=== PATIENT | female | born 1980 | race Caucasian/White ===

== ENCOUNTER → 2016-09-20 | Outpatient (CLI) | payer OTHER ==
[~2016-09-20] MED LIST: BUSP-8 PO; CHOL100010 PO; GABA-113 PO; METH500T37 PO; NAPR-1169 PO; ONDA8TAB62 SL; PRLSR20 PO; TOPI100T34 PO; VITAMIN B2 PO; ZOLP5TAB PO
[2016-09-23 13:45] LABS: MICROSOMAL AB 1 IU/ML (<9); THYROGLOBULIN 9.8 NG/ML (2.8-40.9)
== END | disposition home or self-care (01) ==
LOC: C.LABBC 13:38
PROVIDERS: ATTEND Family Medicine
DX: A69.20 Lyme disease, unspecified (principal); A68.1 Tick-borne relapsing fever; R63.4 Abnormal weight loss

== ENCOUNTER 2021-01-24 05:43 | Observation (INO) ==
--- NOTE | 2020-12-16 14:01 | PAT Medication Instructions ---
Medication Instructions Date of Service December 16, 2020 Home Medications Medication Instructions Recorded gabapentin 100 mg capsule 100 mg PO DAILY PRN #30 cap 07/14/20 gabapentin 600 mg tablet 600 mg PO HS #30 tab 07/14/20 gabapentin 100 mg capsule 100 mg PO DAILY PRN gabapentin 600 mg tablet 600 mg PO HS glutathione 50 mg capsule 50 mg PO QAM montelukast 10 mg tablet 10 mg PO DAILY cholecalciferol (vitamin D3) 125 mcg (5,000 unit) capsule 5,000 unit PO DAILY STOP taking 2 weeks before surgery If surgery is within 2 weeks, stop taking as soon as possible. glutathione 50 mg capsule 50 mg PO QAM DO NOT take the morning of surgery montelukast 10 mg tablet 10 mg PO DAILY cholecalciferol (vitamin D3) 125 mcg (5,000 unit) capsule 5,000 unit PO DAILY Take morning of surgery With a small sip of water, OTHERWISE NOTHING TO EAT OR DRINK AFTER MIDNIGHT: gabapentin 100 mg capsule 100 mg PO DAILY PRN (if needed) Take evening before surgery gabapentin 100 mg capsule 100 mg PO DAILY PRN (if needed) gabapentin 600 mg tablet 600 mg PO HS cholecalciferol (vitamin D3) 125 mcg (5,000 unit) capsule 5,000 unit PO DAILY Other Notes If you have any questions please call us at [phone] or [phone] or [phone] or [phone]
--- NOTE | 2020-12-21 13:11 | Anesthesiology Consultation ---
Date of Service December 21, 2020 Assessment & Plan (1) Encounter for pre-operative examination: COVID Status: As of 12/21 assessment, patient denies travel to endemic area, known exposure/sick contacts, or symptoms of COVID19. Patient instructed that they and their household members must follow strict social distancing guidelines, wear a mask in public and avoid travel/events/gatherings for 14 days prior to surgery. Preoperative COVID19 testing to be completed prior to surgery per surgeon's arrangements (01/04 per pt). Patient made aware to self-isolate as much as possible between COVID testing and surgery. Pt is fully vaccinated. Patient to PCP on 10/07/20 with persistent chest pressure/tightness. Also with strong family history of cardiovascular disease. PCP arranging for stress echo. Discussed this with patient at PAT appointment. She reports she did not have medical insurance at that time so stress echo was never completed. However, she now has insurance and should be able to complete stress echo. She is to see her PCP on 12/27/2020. Workload message sent to PCP requesting stress echo be completed prior to surgery. HCG AM DOS Chart Review Chart Review: Acceptable Risk for Surgery (pending response from PCP) and Patient seen in Pre Admission Testing Teaching & Discussion Instructed NPO after midnight before surgery, except medications with 15 cc of water. Medication instructions provided according to the [facility] guidelines. History Surgery Operation Date: 01/10/21 07:30 Proposed Procedures p Robotic Total Laparoscopic Hysterectomy - Maria Fernanda Stoll MD, FACOG Height/Weight Height: 5 ft 4 in Weight: 114 kg Allergies Allergy/AdvReac Type Severity Reaction Status Date / Time dexamethasone Allergy Severe SWELLING Verified 12/21/20 11:45 OF THE THROAT, SHORTNESS OF BREATH Gadolinium-Containing Allergy Verified 12/21/20 11:45 Contrast Medi Medications Home Medications Medication Instructions Recorded Confirmed Last Taken gabapentin 100 mg capsule 100 mg PO DAILY PRN #30 cap 07/14/20 12/21/20 Unknown gabapentin 600 mg tablet 600 mg PO HS #30 tab 07/14/20 12/21/20 Unknown glutathione 50 mg capsule 50 mg PO QAM 09/13/20 12/21/20 Unknown montelukast 10 mg tablet 10 mg PO DAILY 09/13/20 12/21/20 Unknown cholecalciferol (vitamin D3) 125 5,000 unit PO DAILY cap 10/07/20 12/21/20 Unknown mcg (5,000 unit) capsule Past Medical History Medical History (Updated 12/21/20 @ 13:14 by Max Hubbard) Anxiety Babesiosis Dx in 2017, tests were still coming back + in 2019. Cervical disc disease Chronic daily headache Insomnia slowly getting better Iron deficiency anemia Lyme disease 2016 TMJ (temporomandibular joint disorder) click only never locked Vitamin D deficiency Exercise / Class Metabolic Activity II 4-5 Yardwork/Stairs/Walk up hill Pt regularly plays frisbee golf and hikes and has been getting some chest pain and [place] with exertion. To have stress echo per PCP. Past Family History Family History Brother Drug abuse Alcohol abuse Parker's palsy Depression Seizure Myocardial infarction Father Alcohol abuse Mother Cardiac disorder Hypertension Myocardial infarction Uncle Colorectal cancer Prostate cancer Myocardial infarction Aunt Breast cancer Myocardial infarction Grandfather (Maternal) Myocardial infarction Grandmother (Maternal) Myocardial infarction Brother Stroke Alcohol abuse Denies family history of Ovarian cancer Past Surgical History Surgical History (Updated 12/21/20 @ 13:06 by Max Hubbard) H/O colonoscopy H/O wisdom tooth extraction History of esophagogastroduodenoscopy (EGD) Status post surgical removal of pilonidal cyst Past Anesthesia History No Hx of Anesthesia Complications and No Family Hx of Anesthesia Complications History of PONV No Hx of PONV and Hx of Motion Sickness Social History Smoking Status: Never smoker Do You Dip or Chew Tobacco: No Hx Alcohol Use: No Hx Substance Use: No substance use type: does not use Review of Systems Pt denies any recent palpitations, cough, URI, or uncontrolled acid reflux. +occasional fevers (2/2 Babesiosis, chronic, intermittent temp of > 100) Physical Exam Vital Signs BP: 115/83 P: 74bpm SPO2: 99% RA T: 98.5 F R: 16 Constitutional + obese ENMT Mouth: no dental restorations, no chipped teeth and no loose teeth Thyromental Distance: > or= 3.5 Finger Breadths Mallampati Class: II Neck normal visual inspection; neck extension not limited Respiratory normal respiratory effort, lungs clear to auscultation Cardiovascular RRR, no murmur, no edema Testing Laboratory Results 12/21/20 13:21 12/21/20 13:21 Blood Type A Negative 12/21/20 13:21 Antibody Screen NEGATIVE 12/21/20 13:21 Electrocardiogram Date: 10/07/20 Sinus rhythm at 82 bpm. Possible anterior myocardial infarction of indeterminate age. *Done at PCP office, pt to have stress test. Chest X-Ray Date: 10/07/20 Findings: + NAD
[2020-12-21 14:56] LABS: Basophils # (auto) 0.02 K/uL (0-0.2); Basophils % (auto) 0.3 %; Eosinophils % (auto) 1.4 %; Hematocrit (blood only) 42.3 % (37-47); Hemoglobin 14.2 g/dL (12.0-16.0); Immature Granulocytes # (auto) 0.02 K/uL (0.00-0.02); Immature Granulocytes % (auto) 0.3 %; Lymphocytes # (auto) 1.44 K/uL (1.2-3.4); Lymphocytes % (auto) 20.9 %; Mean Corpuscular Hemoglobin 29.5 pg (25-34); Mean Corpuscular Hgb Conc 33.6 g/dL (32-36); Mean Corpuscular Volume 87.8 fL (80-100); Mean Platelet Volume 10.1 fL (7.4-10.4); Monocytes # (auto) 0.32 K/uL (0.11-0.59); Monocytes % (auto) 4.6 %; Neutrophils % (auto) 72.5 %; Platelet Count 285 K/uL (130-400); RDW Coefficient of Variation 14.3 % (11.5-14.5); Red Blood Count 4.82 M/uL (4.2-5.4)
[2020-12-21 16:48] LABS: BUN Creatinine Ratio 14.9 (10-20); Calcium 9.3 mg/dl (8.5-10.1); Creatinine Clr Calc Pharmacy 113.4 ml/min; Est GFR (African American) 105.4; Est GFR (Non-African American) 90.9; Potassium 4.3 mmol/L (3.5-5.1)
[2021-01-24] MEDS ORDERED: LR 15ML/HR IV SCH (06:00)
[2021-01-24] MEDS ORDERED: LACTATED RINGER'S 1,000 ML IV SCH ×2 (06:00→11:15)
[2021-01-24] MEDS ORDERED: PHENAZOPYRIDINE HCL 100 MG TAB PO SCH (06:00)
[2021-01-24] MEDS ORDERED: DEXAMETHASONE SOD INJ 4 MG/ML VIAL ONE (06:51)
[2021-01-24] MEDS ORDERED: GLYCOPYRROLATE 0.2 MG/ML VIAL ONE ×2 (06:51→08:53)
[2021-01-24] MEDS ORDERED: MIDAZOLAM HCL 1 MG/ML 2ML VIAL ONE (06:51)
[2021-01-24] MEDS ORDERED: PROPOFOL IV EMULSION 10 MG/ML 20 ML VIAL IV ONE (06:51)
[2021-01-24] MEDS ORDERED: ONDANSETRON INJ 2 MG/ML 2 ML VIAL ONE ×2 (06:51→08:53)
[2021-01-24] MEDS ORDERED: LIDOCAINE 2% 2 ML VIAL/AMP(20MG/ML) INFIL ONE (06:51)
[2021-01-24] MEDS ORDERED: NEOSTIGMINE METHYLSULFATE 1 MG/ML 10ML VIAL ONE (06:51)
[2021-01-24] MEDS ORDERED: fentaNYL citrate 100 MCG/2 ML VIAL ONE ×3 (06:52→10:33)
[2021-01-24] MEDS ORDERED: SCOPOLAMINE 1 MG TDSY TD ONE (07:04)
[2021-01-24] MEDS ORDERED: LABETALOL HCL IV 5 MG/ML 20ML IV PRN (07:09)
[2021-01-24] MEDS ORDERED: KETOROLAC 30 MG/ML VIAL IV PRN ×2 (07:09→11:13)
[2021-01-24] MEDS ORDERED: PROMETHAZINE HCL 12.5 MG in SODIUM CHLORIDE 0.9% 50 ML IV PRN (07:09)
[2021-01-24] MEDS ORDERED: fentaNYL citrate 100 MCG/2 ML VIAL IV PRN (07:09)
[2021-01-24] MEDS ORDERED: ATROPINE SULFATE 0.1 MG/ML 10ML SYR IV PRN (07:09)
[2021-01-24] MEDS ORDERED: ONDANSETRON INJ 2 MG/ML 2 ML VIAL IV PRN ×2 (07:09→11:13)
[2021-01-24 07:19] LABS: Pregnancy Test, Serum Negative (Negative)
--- NOTE | 2021-01-24 07:24 | History & Physical Report ---
Date of Service January 24, 2021 Assessment & Plan (1) Fibroid uterus: (2) Menorrhagia: (3) Iron deficiency anemia: Admission and Anticipated Discharge Date Admission Date: Discussed with patient previously and again today her options to help her bleeding and symptomatic fibroid uterus. Some options overlap like UAE but otherwise due to pelvic pressure sx, myomectomy or hysterectomy best options to help those sx. She is ready for such. Discussed risks, alternatives and complications and recovery and preop and postop care at length. Discussed lifting restrictions specifically due to her work. We have discussed in past use of lupron to help shrink overall size which may or may not make surgery easier but given hgb normal would not insist she do and after review of side effects, she declines. Also may not help a pedunculated fibroid as well. Endometrial bi opsy done, will await results. She will plan TLH, bilateral salpingectomies and cystoscopy with robotic assistance. Risks, alternatives, complications reviewed with the patient included but not limited to bleeding, infection, anesthesia, injury to surrounding structures to include bowel, bladder, vessels, nerves, ureters, deep venous thrombosis, pulmonary embolism, delayed complications, repeat hospitalizations. The patient desires to proceed and the consent form is signed. She is aware of her preop, postop instructions and course. US done today, ordered by me, reviewed by me with uterine size 14.1 x 7.2 x5.8cm includes left fibroid that is subserosal and fundal. Right fibroid is seemingly pedunculated and 7 x8cm approximately. Ovaries are normal. Findings similar to December 2019 u/s. History of Present Illness Primary Care Provider: Tashia Cheng, DO 40yo G0 with cc of symptomatic fibroid uterus and heavy vaginal flow with history of anemia for treatment planning. Seen recently with the following history. She notes periods are still regular but getting longer. Now they are 7days long but now with 4 heavy days. On heavy days, she doubles up with pad and tampon and has to change at 1.5-2hr and leaking through. Could have accident if not careful. Pain as well, she tried the advil in high doses and did not help with flow or pain. Pain starts about 3d before period and then lasts for entire period. She tried advil as mentioned and naprosyn and does not feel made any difference in her pain. She had chronic HAs and will use exedrin migraine for that and does not help either. Not currently SA. Feeling pressure and heaviness symptoms in pelvis. She has pressure on her spine and hip as well and wondering if also related to enlarged uterus. At her last exam 15 wk size. Has history of anemia and gets iron infusions. Hemoglobin in october was normal but still requiring IV Fe treatment. She has considered her options and desires definitive hysterectomy. She is aware of methods to help bleeding like hormones, nsaids, mirena iud, ablation and hysterectomy and those that can help size of uterus , like UAE, myomectomy and hysterectomy. She opts for latter to help both issues. We have also discussed in past, experimental methods being done in some centers to try to shrink fibroids. She again is here to discuss surgery and we do need to do an embx. Her last u/s was december 2019 as mentioned and so getting repeat today. Would like ovarian preservation. Aware that with size of uterus there is risk to needing open procedure. Endometrial biopsy negative. All Active Problems Encounter for pre-operative examination History of anemia Lyme disease Babesiosis Fibroid uterus Menorrhagia Encounter for annual routine gynecological examination Iron deficiency anemia Anxiety Cervical disc disease Chronic daily headache Migraine, unspecified, not intractable, without status migrainosus Allergies Allergy/AdvReac Type Severity Reaction Status Date / Time dexamethasone Allergy Severe SWELLING Verified 01/24/21 06:11 OF THE THROAT, SHORTNESS OF BREATH Gadolinium-Containing Allergy Verified 01/24/21 06:11 Contrast Medi Home Medications Medication Instructions Recorded Confirmed Type gabapentin 100 mg capsule 100 mg PO DAILY PRN #30 cap 07/14/20 12/27/20 Rx gabapentin 600 mg tablet 600 mg PO HS #30 tab 07/14/20 01/24/21 Rx glutathione 50 mg capsule 50 mg PO QAM 09/13/20 12/27/20 History montelukast 10 mg tablet 10 mg PO DAILY 09/13/20 01/24/21 History cholecalciferol (vitamin D3) 125 5,000 unit PO DAILY cap 10/07/20 01/24/21 History mcg (5,000 unit) capsule doxycycline hyclate 100 mg capsule 100 mg PO BID 4 Days #8 cap 12/27/20 01/24/21 Rx erenumab-aooe 70 mg/mL 70 mg SUBCUT MONTHLY #1 ea 12/27/20 01/24/21 Rx subcutaneous auto-injector Patient History Medical History Anxiety Babesiosis Cervical disc disease Chronic daily headache Insomnia Iron deficiency anemia Lyme disease TMJ (temporomandibular joint disorder) Vitamin D deficiency Surgical History H/O colonoscopy H/O wisdom tooth extraction History of esophagogastroduodenoscopy (EGD) Status post surgical removal of pilonidal cyst Family History Brother Drug abuse Alcohol abuse Parker's palsy Depression Seizure Myocardial infarction Father Alcohol abuse Mother Cardiac disorder Hypertension Myocardial infarction Uncle Colorectal cancer Prostate cancer Myocardial infarction Aunt Breast cancer Myocardial infarction Grandfather (Maternal) Myocardial infarction Grandmother (Maternal) Myocardial infarction Brother Stroke Alcohol abuse Denies family history of Ovarian cancer Social History Smoking Status: Never smoker Second Hand Exposure: No; Do You Dip or Chew Tobacco: No; Tobacco Cessation Education Requested by Patient: No Hx Alcohol Use: No Hx Substance Use: No Preferred Language: Lithuanian Communication Ability: Effective Visual Impairment: No Limitations Hearing Ability: Normal Data Sme Required: No Beliefs That Will Affect Care: None marital status: Current Living Situation: Spouse current occupational status: unemployed current occupation: post office, [employer], [employer] Other Information That Helps Us Care for You: No Feels Safe at Home: Yes Safety Concerns: Feels Safe At This Time caffeine: No during the past year weight has: remained stable Dental Care, Regularly: Yes Physical Activity Frequency: Daily Seatbelt Use: always Sunscreen Use: Yes Assistive Devices: None Review of Systems per hpi Physical Exam Constitutional: WD/WN, vitals as above Respiratory: normal respiratory effort, lungs clear to auscultation Cardiovascular: Rate/Rhythm: regular rate and regular rhythm Gastrointestinal (Abdomen): Percussion/Palpation: abdomen soft; abdomen nontender Musculoskeletal: nt calves Neurologic: grossly normal Psychiatric: A+Ox3, euthymic affect Genitourinary: normal external appearance Speculum/Bimanual Exam: normal appearance of the vagina, normal appearance of the cervix and + uterus enlarged (15 wk size irreg contour to right); no adnexal mass Results & Data ([facility]) Vital Signs (Past 12 Hours) Vital Signs Temp Pulse Resp BP Pulse Ox 01/24/21 06:24 97.9 F 92 H 18 128/97 99 Coding Level of Care Code None Diagnoses Fibroid uterus D25.9 Menorrhagia N92.0 Iron deficiency anemia D50.9
[2021-01-24] MEDS ORDERED: BUPIVACAINE 0.5 % 5 MG/1 ML MPF 30ML VIAL ONE (07:26)
[2021-01-24] MEDS ORDERED: VASOPRESSIN 20 UNIT/ML VIAL ONE (08:23)
[2021-01-24] MEDS ORDERED: ePHEDrine sulfate 50 MG/ML SYR ONE (08:53)
[2021-01-24] MEDS ORDERED: ROCURONIUM BROMIDE 10 MG/ML 5 ML VIAL IV ONE (08:53)
[2021-01-24] MEDS ORDERED: KETOROLAC 30 MG/ML VIAL ONE (10:54)
--- NOTE | 2021-01-24 10:58 | Post Operative Brief Note ---
PG Immediate Post Op with CF Date of Surgery January 24, 2021 Pre & Post Diagnosis Operation Date: 01/24/21 07:30 Pre-Op Diagnosis: Menorrhagia, Uterine Leiomyoma, History of Anemia Post-Op Diagnosis: Menorrhagia, Uterine Leiomyoma, History of Anemia I identified the patient and participated in the time-out.: Yes Procedure Operation Date: 01/24/21 07:30 Actual Procedures p Robotic Total Laparoscopic Hysterectomy, Bilateral Salpingectomy with Excite Procedure, Cystoscopy - Maria Fernanda Stoll MD, FACOG Surgeon Maria Fernanda Stoll MD, FACOG Webmethods Consultant Lianet Estimated Blood Loss 20 Findings Consistent with Post-Op Diagnosis (enlarged 15wk size uterus with anterior fibroid x 2 and additional large right subserosal fibroid about 8cm. normal ovaries and tubes. cystoscopy findings with normal bladder filling and normal ureteral jets. ) Fluids 1300 Specimens Specimen Description: A. uterus, bilateral fallopian tubes, cervix Drains Alvarez Catheter Anesthesia Type General Complications none Disposition Disposition: Recovery Room
[2021-01-24] MEDS ORDERED: oxyCODONE/ACETAMINOPHEN 5mg/325mg TAB PO PRN ×2 (11:13)
[2021-01-24] MEDS ORDERED: ACETAMINOPHEN 325 MG TAB PO PRN (11:13)
[2021-01-24] MEDS ORDERED: IBUPROFEN 600 MG TAB PO PRN (11:13)
[2021-01-24] MEDS ORDERED: SIMETHICONE 80 MG CHEW PO PRN (11:13)
--- NOTE | 2021-01-24 11:28 | Operative Report ---
PG Post Operative Report Pre & Post Diagnosis Operation Date: 01/24/21 07:30 Pre-Op Diagnosis: Menorrhagia, Uterine Leiomyoma, History of Anemia Post-Op Diagnosis: Menorrhagia, Uterine Leiomyoma, History of Anemia I identified the patient and participated in the time-out.: Yes Procedure Operation Date: 01/24/21 07:30 Actual Procedures p Robotic Total Laparoscopic Hysterectomy, Bilateral Salpingectomy, Cystoscopy, Morcellation of uterus - Maria Fernanda Stoll MD, FACOG Surgeon Maria Fernanda Stoll MD, FACOG Stocking And Box Shop Supervisor Lianet Estimated Blood Loss 20 Findings Consistent with Post-Op Diagnosis (enlarged 15wk size uterus with anterior fibroid x 2 and additional large right subserosal fibroid about 8cm. normal ovaries and tubes. Filmy adhesions of uterus posteriorly to sigmoid colon. normal liver edge cystoscopy findings with normal bladder filling and normal ureteral jets. ) Fluids 1300 Specimens uterus, cervix, bilateral fallopian tubes Drains ruelas Anesthesia Type General Complications none Disposition Disposition: Recovery Room Indications 40yo G0 with cc of menorrhagia with history of anemia and fibroid uterus for definitive management. Patient was aware of her options and desired to proceed. Description of Procedure The patient was taken to the operating room and identified. After adequate general anesthesia was obtained she was placed in the dorsolithotomy position and prepped and draped in the usual sterile fashion. Attention was turned to the patient's vagina where a weighted speculum and anterior retractor were used to visualize the cervix. The cervix was grasped on its anterior lip with an allis clamp. A single interrupted suture of 0-vicryl was placed at the 3 o'clock position and tied down. The uterus sounded to 10cm. The V-Care uterine manipulator was placed through the cervical os into the uterine cavity and the balloon was inflated. The cup was tied down against the cervix with the suture material and the stabilizing cup was placed. A ruelas catheter had already been placed under sterile conditions. The retractors were removed and attention was then turned to the patient's abdomen. The scalpel was used to make a skin incision 2cm above umbilicus in midline and the veress needle was placed intraperitoneally with an opening pressure of 5mm Hg. A CO2 pneumoperitoneum was created. The 8mm optical trocar attached to the laparoscope was then placed intraperitoneally and the patient was placed in steep Trendelenburg. The pelvis and abdomen were inspected with the findings as noted above. Three Da Jazmyne trocar sites were created left and right of the midline by first make skin incisions with the scalpel and then placing under direct visualization Da Jazmyne trocars. An additional 5mm patient assistance port was placed in the left upper quadrant. The laparoscope was removed and the Da Jazmyne Robot was brought to the patient's bedside. The appropriate arms were connected to the appropriate trocars after the camera was introduced. The monopolar jewell and the fenestrated bipolar instruments were brought through instrument arms #1 and #3 respectively under direct visualization. The prograsp was brought through instrument arm #4. The surgeon then went to the console. Clearly the right uterus was obscured by the large subserosal fundal fibroid that was not really pedunculated therefore attention was turned to the left side. Using manipulation from below the left uterine ovarian/fallopian tube/round ligament complex was easily identified. This complex was coagulated and transected gradually with the bipolar cautery followed by the monopolar jewell. The anterior and posterior leaves of the broad ligament were opened and the bladder flap was begun anteriorly but visualization was poor due to large anterior SERA fibroid. Therefore more of the tissue posteriorly was cauterized and cut on this side. The uterine artery pedicle was bluntly skeletonized. Enough of the bladder flap was developed anteriorly from the left that allowed palpation of the vcare cup anteriorly however to be sure I knew where the bladder edge was, the bladder was backfilled with water and the planned operative site was no where near dome of bladder. The uterine artery pedicle was cauterized on this side and transected gradually. The cardinal ligament attachments were also gradually coagulated and transected and the tissue was pushed away bluntly as the planned colpotomy site was cleared. Attention was then turned to the right uterine ovarian/fallopian tube/round ligament complex which was identified and visualized with assistance of tenaculum holding to side the large right fundal fibroid from patient assistance port. The ovarian ligament was cauterized and cut , followed by the tube and round ligament on this side. The broad ligament leaves were opened up on this side and a bladder flap was created from this side meeting in the midline anteriorly. The bladder was pushed away bluntly from the planned colpotomy site.The uterine artery pedicle was skeletonized on this side and the vessels were coagulated. The were then transected and sequentially the cardinal ligament attachments were also coagulated and cut. The pedicle was pushed well away from the planned colpotomy. The bladder flap had been dissected and the bladder was pushed well away from the planned colpotomy site. The uterus was raised and the colpotomy was begun posteriorly and carried around circumferentially to transect the cervix from the upper vagina. The specimen was too large and would need to be morecellated and therefore was left in upper abdomen. A sponge was placed in the vagina to maintain the pneumoperitoneum. The fallopian tubes were resected with cautery and scissors and brought out through the vagina as specimens. Operative sites were hemostatic. The monopolar jewell were replaced with a large needle cattle driver and the 2-0 V-Lock 90 suture was brought through the vagina. The cuff was closed in a routine fashion with this suture material and back sutures were placed. The sponge was removed from the vagina and the pneumoperitoneum was maintained. The suture material was cut and the needle was removed from the abdomen through instrument arm #3. After the needle was removed the suction monorail charger operator was brought through the wet process miller head assistant port and the pelvis was irrigated and the operative sites were hemostatic. The pneumoperitoneum was let down and no bleeding sites were noted. The cystoscopy was then performed with the findings as noted above and a new ruelas catheter was placed. The robot was then undocked and moved away from the patient's bedside. The 5mm camera was introduced and the midline trocar was removed and replaced under visualization with a 15mm trocar and the spleen bag was introduced. The specimen was retrieved and placed in the bag. The bag was brought through the skin as the trocar was removed. With time, the uterus with fibroids were removed with morcellation with knife. This took some time. Once the specimen was removed, allis clamps were placed across this incision which had been extended sharply and bluntly for the prior stated morcellation. The pelvis was inspected and irrigated and all operative sites were inspected and hemostatic. The CO2 gas was allowed to escape from the patient's abdomen. The trocars were removed. The fascia at the umbilicus was reapproximated with 0 vicryl. The subcutaneous tissues were reapproximated with 2-0 chromic and all skin incisions were closed with 4-0 vicryl in a subcuticular fashion. The incisions were injected with marcaine and dressed with band-aids. At this point the procedure was terminated. The patient was returned to the supine position and transported to the recovery room in stable condition. All sponge lap and needle counts were correct x 2. I attest to the content of the Intraoperative Record and any orders documented therein. Any exceptions are noted below. OPTOMETRIST/PRACTICE OWNER Major Procedure Codes Hysterectomy 79833 TLH >250g +S/O Miscellaneous 32943 Cystoscopy
[2021-01-24 13:41] VITALS: TEMP 97.9
--- NOTE | 2021-01-24 14:13 | Anesthesiology Progress Note ---
Date of Service January 24, 2021 Anesthesia Post Procedure Vital Signs Vital Signs: Temp Pulse Pulse Pulse Resp BP Pulse Ox 01/24/21 13:20 36.6 C 90 18 128/79 97 01/24/21 12:50 84 18 122/80 97 01/24/21 12:20 76 18 136/77 100 01/24/21 11:50 36.3 C L 72 18 142/82 H 100 01/24/21 11:40 36.3 C L 91 H 16 125/84 100 01/24/21 11:30 93 H 16 102/76 100 01/24/21 11:20 90 16 126/76 100 01/24/21 11:11 36.4 C L 96 H 16 117/89 98 01/24/21 06:24 36.6 C 92 H 18 128/97 99 Transfer of Care Handoff Completed per policy Notes Mental Status: alert / awake / arousable Patient Amnestic to Procedure: Yes Nausea / Vomiting: adequately controlled Pain: adequately controlled Airway Patency, RR, SpO2: stable & adequate BP & HR: stable & adequate Hydration State: stable & adequate Anesthetic Complications: no major complications apparent
[2021-01-24 15:50] VITALS: BP 107/74; O2SAT 99
[2021-01-24 16:24] VITALS: PULSE 84
--- NOTE | 2021-01-25 15:09 | Discharge Summary ---
Date of Service Date of admission: January 24, 2021 Date of discharge: January Admission HPI Per Admitting Provider 40yo G0 with cc of symptomatic fibroid uterus and heavy vaginal flow with history of anemia for treatment planning. Seen recently with the following history. She notes periods are still regular but getting longer. Now they are 7days long but now with 4 heavy days. On heavy days, she doubles up with pad and tampon and has to change at 1.5-2hr and leaking through. Could have accident if not careful. Pain as well, she tried the advil in high doses and did not help with flow or pain. Pain starts about 3d before period and then lasts for entire period. She tried advil as mentioned and naprosyn and does not feel made any difference in her pain. She had chronic HAs and will use exedrin migraine for that and does not help either. Not currently SA. Feeling pressure and heaviness symptoms in pelvis. She has pressure on her spine and hip as well and wondering if also related to enlarged uterus. At her last exam 15 wk size. Has history of anemia and gets iron infusions. Hemoglobin in october was normal but still requiring IV Fe treatment. She has considered her options and desires definitive hysterectomy. She is aware of methods to help bleeding like hormones, nsaids, mirena iud, ablation and hysterectomy and those that can help size of uterus , like [place], myomectomy and hysterectomy. She opts for latter to help both issues. We have also discussed in past, experimental methods being done in some centers to try to shrink fibroids. She again is here to discuss surgery and we do need to do an embx. Her last u/s was december 2019 as mentioned and so getting repeat today. Would like ovarian preservation. Aware that with size of uterus there is risk to needing open procedure. Endometrial biopsy negative. All Active Problems Encounter for pre-operative examination History of anemia Lyme disease Babesiosis Fibroid uterus Menorrhagia Encounter for annual routine gynecological examination Iron deficiency anemia Anxiety Cervical disc disease Chronic daily headache Migraine, unspecified, not intractable, without status migrainosus Discharge Data Procedures Performed Operation Date: 01/24/21 07:30 Actual Procedures p Robotic Total Laparoscopic Hysterectomy, Bilateral Salpingectomy with uterine morcellation Procedure, - Maria Fernanda Stoll MD, FACOG s Cystoscopy - Maria Fernanda Stoll MD, [facility] (1) History of anemia: (2) Menorrhagia: (3) Fibroid uterus: Patient was admitted and underwent the above stated procedures. Please see her H&P for more detail. The procedures were performed without incident. Her postop recovery and course were uncomplicated and on POD #0 she was stable for discharge to home. She was tolerating a regular diet, voiding and ambulating without difficulty and her pain was well controlled on oral pain medications. Her instructions were reviewed and followup reviewed which was planned for approximately 2 weeks. She was sent appropriate pain medicine scripts to her pharmacy. Coding Level of Care Code None Diagnoses History of anemia Z86.2 Menorrhagia N92.0 Fibroid uterus D25.9
== END 2021-01-24 18:45 | disposition home or self-care (01) ==
LOC: ASU 05:43 → 4N 05:43